=== PATIENT | female | born 1985 | race Caucasian/White ===

== ENCOUNTER → 2017-05-31 | Outpatient (CLI) | payer MEDICAID ==
[~2017-05-31] MED LIST: BACTRIM DS 8001 TA1 PO; BACTRIM DS 8001 TAB PO; CIPRO 500MG TA500 MG PO; DARVOCET-N 1001 EACH PO; IBUPROFEN800 MG PO; IRON TABLETS325 MG PO; LODINE200 MG PO; METRONIDAZOLE500 MG PO; MOTRIN 400MG.400 MG PO; PERCOCET 5/3251 EACH PO; PRENATAL PLUS1 TA1 PO; TAMAFLU OR; [UNRECOGNIZED DRUG - OTHER] OR; [UNRECOGNIZED DRUG - OTHER] OT
[2017-05-31 14:13] LABS: HEMOGLOBIN 14.1 g/dL (12.2-16.2); LYMPH # 2.4 K/mm3 (0.7-4.5)
[2017-05-31 15:00] LABS: BUN 10 mg/dL (7-18)
[2017-05-31 15:01] LABS: GFR (ESTIMATED) 96 ML/MIN (59-)
== END ==
LOC: LAB 13:40
PROVIDERS: Nurse Practitioner Family
DX: R53.83 Other fatigue (principal)

== ENCOUNTER → 2017-06-02 | Outpatient (CLI) | payer MEDICAID ==
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
== END ==
LOC: RAD 10:02
DX: M54.2 Cervicalgia (principal)

== ENCOUNTER 2017-09-07 08:06 | Emergency (ER) | payer MEDICAID ==
[~2017-09-07] VITALS: Ht 165.1 cm; Wt 47.6 kg
--- OUTSIDE RECORDS SUMMARY | 2017-09-07 08:20 | External Medical Summary Rpt | CCD ---
Demographics Preferred Language Persian Marital Status Unknown Evangelical Affiliation Unknown Race Unknown Ethnic Group Unknown Author Author , FRANCIS PORTILLOPORFIRIO Address Unknown Phone [email or web address] Care Team Providers Care Incubator Tender Name Role Phone [facility] Unavailable Unavailable [id number] # [phone], [facility] [id number] # [phone] Purpose Continuity of Care Document - 01-11-2010 through 2016 Medications Na ND Rx Da Fi Fi Am Da Di Ph RX Ph St me C No te ll ll ou ys ag ar # ys at rm s nt no ma ic us Or Da si cy ia de te s n re d 00 08 08 24 6 RI 89 ER Ac 60 -2 -2 .0 TE 64 EN ti 33 5- 5- 00 33 A ve 88 20 20 AI GR 12 11 11 D EG 8 PH OR AR Y MA R CY 03 93 8 # 03 93 00 08 08 24 6 RI 89 ER Ac 60 -2 -2 .0 TE 64 EN ti 33 5- 5- 00 33 A ve 88 20 20 AI GR 12 11 11 D EG 8 PH OR AR Y MA R CY 03 93 8 # 03 93 IB 53 08 08 20 5 RI 89 ER Ac UP 74 -2 -2 .0 TE 64 EN ti RO 60 5- 5- 00 34 A ve FE 46 20 20 AI GR N 50 11 11 D EG 60 5 PH OR 0 AR Y MG MA R CY TA BL 03 ET 93 8 # 03 93 00 10 10 3 [address] Ac 18 -1 -1 .0 TE 45 EP ti 50 9- 9- 00 31 HE ve 61 20 20 AI NS 30 10 10 D 1 PH DO AR N MA R CY 03 93 8 # 03 93 00 10 10 12 2 RI 85 SO Ac 60 -0 -0 .0 TE 22 KA ti 35 1- 1- 00 88 N ve 46 20 20 AI BA 82 10 10 D BA 8 PH TU AR ND MA E CY O 03 93 8 # 03 93 RODRIGUEZ 53 10 10 14 7 RI 85 SO Ac LF 74 -0 -0 .0 TE 22 KA ti AM 60 1- 1- 00 90 N ve ET 27 20 20 AI BA HO 20 10 10 D BA XA 5 PH TU ZO AR ND LE MA E -T CY O MP 03 DS 93 8 TA # BL 03 ET 93 00 04 04 20 3 RI 82 SE Ac 40 -1 -1 .0 TE 96 XT ti 60 3- 3- 00 58 ON ve 35 20 20 AI 70 10 10 D WI 5 PH LL AR IA MA M CY M 03 93 8 # 03 93 00 04 04 20 3 RI 82 SE Ac 40 -1 -1 .0 TE 96 XT ti 60 3- 3- 00 58 ON ve 35 20 20 AI 70 10 10 D WI 5 PH LL AR IA MA M CY M 03 93 8 # 03 93
--- OUTSIDE RECORDS SUMMARY | 2017-09-07 08:20 | External Medical Summary Rpt | CCD ---
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 H92.09 OTALGIA, UNSPECIFIED EAR J10.1 FLU DUE TO OTH IDENT INFLUENZA VIRUS W OTH RESP MANIFEST K80.20 CALCULUS OF GALLBLADDER W/O CHOLECYSTIT IS W/O OBSTRUCTION M54.9 DORSALGIA, UNSPECIFIED N39.0 URINARY TRACT INFECTION, SITE NOT SPECIFIED R10.9 UNSPECIFIED ABDOMINAL PAIN Z34.90 ENCNTR FOR SUPRVSN OF NORMAL , UNSP, UNSP TRIMESTER Medications Na ND Rx Da Fi Fi [...] D WI 5 PH LL AR IA LINDSAY M CY M 03 93 8 # 03 93 Results Labs Lab Lab Date Result Refere Interp Status Commen Order Detail nces retati t Range on Hemoglobin A1c in Blood (05-31-2017 11:15) Hemoglo 5.4 % 0.0% Normal complet bin A1c 017 - ed in 11:15 7.0% Blood CHLAMYDIA AND GONORRHEA TESTING (02-24-2014 09:45) Disability Benefits Specialist: Cortney Bonner MD FC Lab: [facility] Division of Laboratory Services Lab Address: [address] [place] [address], [address] [place] [id number] 02-24-2014 9:45 am Specimen Collection Start Date/Time: Hydraulic Lift Operator: Specimen Rah'flip 03-16-2014 9:57 am Date/Time: Ordering Physician: [facility] 03-17-2014 8:27 am Results Rpt/Status Change Date/Time: This report contains patient information that must be protected in accordance with the Health Insurance Portability and Accountability Act. AMPLIFI NEGATIV complet ED 014 E ed CHLAMYD 09:45 IA TEST Comment: NEGATIVE RESULT= WITHIN NORMAL LIMITS Comment: POSITIVE RESULT= ABNORMAL Comment: EQUIVOCAL RESULT= INDETERMINATE Comment: UNSATISFACTORY RESULT= INVALID COLLECT PT/T. complet OR 014 CANDIS ed 09:45 RN ETHNICI 02-24-2 WHITE, complet TY 014 NON-HIS ed 09:45 PANIC KIT 02-24-2 06-30-14 complet EXPIRAT 014 ed ION 09:45 DATE SYMPTOM NO complet S 014 ed 09:45 REASON REVISIT complet FOR 014 /ANNUAL ed REQUEST 09:45 FAMILY PLANNIN G VISIT SPECIME URINE complet N 014 ed SOURCE 09:45 PREGNAN 02-24-2 YES complet T 014 ed 09:45 CHART NA complet NUMBER 014 ed 09:45 AMPLIFI NEGATIV complet ED N 014 E ed GONORRH 09:45 OEAE TEST Comment: NEGATIVE RESULT= WITHIN NORMAL LIMITS Comment: POSITIVE RESULT= ABNORMAL Comment: EQUIVOCAL RESULT= INDETERMINATE Comment: UNSATISFACTORY RESULT= INVALID Comment: THE APTIMA COMBO 2 ASSAY IS NOT INTENDED FOR THE EVALUATION OF SUSPECTED Comment: SEXUAL ABUSE OR FOR OTHER MEDICO-LEGAL INDICATIONS. FOR THOSE PATIENTS FOR Comment: WHOM A FALSE POSITIVE RESULT MAY HAVE ADVERSE PSYCHO-SOCIAL IMPACT, THE CDC Comment: RECOMMENDS RETESTING. Comment: \E\.br\E\This report contains patient information that must be protected in accordance with the Health Insurance Portability and Accountability Act. CHLAMYDIA AND GONORRHEA TESTING (02-24-2014 09:45) COLLECT PT/T. complet OR 014 CANDIS ed 09:45 RN FABIANAI 02-24-2 WHITE, complet TY 014 NON-HIS ed 09:45 PANIC KIT 02-24-06-30-14 complet EXPIRAT 014 ed ION 09:45 DATE SYMPTOM NO complet S 014 ed 09:45 REASON REVISIT complet FOR 014 /ANNUAL ed REQUEST 09:45 FAMILY PLANNIN G VISIT SPECIME URINE complet N 014 ed SOURCE 09:45 PREGNAN 02-24-2 YES complet T 014 ed 09:45 CHART NA complet NUMBER 014 ed 09:45 Chlamyd NEGATIV complet ia 014 E ed trachom 09:45 atis rRNA [Presen ce] in Unspeci fied specime n by Probe & target amplifi cation method Neisser NEGATIV complet ia 014 E ed gonorrh 09:45 oeae rRNA [Presen ce] in Unspeci fied specime n by Probe & target amplifi cation method CHLAMYDIA AND GONORRHEA TESTING (10-29-2012 11:30) Chlamyd NEGATIV complet ia 013 E ed trachom 11:30 atis rRNA [Presen ce] in Unspeci fied specime n by Probe & target amplifi cation method Neisser NEGATIV complet ia 013 E ed gonorrh 11:30 oeae rRNA [Presen ce] in Unspeci fied specime n by Probe & target amplifi cation method CHLAMYDIA AND GONORRHEA TESTING (10-29-2012 11:30) COLLECT NA complet OR 013 ed 11:30 ETHNICI WHITE, complet TY 013 NON-HIS ed 11:30 PANIC KIT 04-30-13 complet EXPIRAT 013 ed ION 11:30 DATE SYMPTOM NO complet S 013 ed 11:30 REASON REVISIT complet FOR 013 /ANNUAL ed REQUEST 11:30 FAMILY PLANNIN G VISIT SPECIME FEMALE complet N 013 ENDOCER ed SOURCE 11:30 VICAL PREGNAN NO complet T 013 ed 11:30 CHART NA complet NUMBER 013 ed 11:30 Chlamyd Pending complet ia 013 ed trachom 11:30 atis rRNA [Presen ce] in Unspeci fied specime n by Probe & target amplifi cation method Neisser Pending complet ia 013 ed gonorrh 11:30 oeae rRNA [Presen ce] in Unspeci fied specime n by Probe & target amplifi cation method
--- OUTSIDE RECORDS SUMMARY | 2017-09-07 08:20 | External Medical Summary Rpt | CCD ---
Demographics Preferred Language Vietnamese Marital Status Unknown Christianity Affiliation Unknown Race Unknown Ethnic Group Unknown Author Author , FRANCIS BLANCO Address Unknown Phone [email or web address] Immunization Name Date Rout CVX Reac Dose Comm Prov Is Faci e tion ent ider Refu lity Give sed n Td 05-0 9 999 Hist H149 No H149 (lana 3-19 oric lt), 99 al Info adso rmat rbed ion - Sour ce Unsp ecif ied
--- OUTSIDE RECORDS SUMMARY | 2017-09-07 08:20 | External Medical Summary Rpt | CCD ---
Demographics Preferred Language Polish Marital Status Unknown Lutheran Affiliation Unknown Race Unknown Ethnic Group Unknown Author Author , FRANCIS PORTILLOPORFIRIO Address Unknown Phone [email or web address] Care Team Providers Care Supervisor Locomotive Name Role Phone [facility] Unavailable Unavailable [id number] # [phone], [facility] [id number] # [phone] Purpose Continuity of Care Document - 01-11-2010 [...]
--- OUTSIDE RECORDS SUMMARY | 2017-09-07 08:20 | External Medical Summary Rpt | CCD ---
Demographics Preferred Language Lithuanian Marital Status Unknown Synagogue Affiliation Unknown Race Unknown Ethnic Group Unknown Author Author , FRANCIS BLANCO Address Unknown Phone [email or web address] Immunization Name Date Rout CVX Reac Dose Comm Prov Is Faci e tion ent ider Refu lity Give sed n Td 05-0 9 999 Hist H149 No H149 (lana 3-19 oric lt), 99 al Info adso rmat rbed ion - Sour ce Unsp ecif ied
--- OUTSIDE RECORDS SUMMARY | 2017-09-07 08:20 | External Medical Summary Rpt | CCD ---
Author Author , FRANCIS BLANCO Address Unknown Phone [email or web address] Care Team Providers Care Claims Correspondence Clerk Name Role Phone [facility] Unavailable Unavailable [phone] # [phone], [facility] [id number] # [phone] Purpose Continuity of Care Document [...] Blood CHLAMYDIA AND GONORRHEA TESTING (02-24-2014 09:45) Thread Grinder: Cortney Bonner MD FC [facility]: [facility] Laboratory Services Lab Address: [address] [place] [address], [address] [place] [id number] 02-24-2014 9:45 am Specimen Collection Start Date/Time: Lens Silverer: Specimen Rah'flip 03-16-2014 9:57 am Date/Time: Ordering Physician: [facility] 03-17-2014 8:27 am Results Rpt/Status Change Date/Time: [...]
--- OUTSIDE RECORDS SUMMARY | 2017-09-07 08:21 | External Medical Summary Rpt ---
Author Author FRANCIS Hylton, FRANCIS [facility] Organization [employer] Address Unknown Phone Unavailable Results 25-Hydroxyvitamin D [Mass/volume] in Serum or Plasma Observa Value Referen Units Interpr Notes Date tion ce etation Range 25-Hydrox 30.0 - ng/mL No Vitamin D May 31 yvitamin 100.0 informati 2017 D on in deficienc 11:15 AM [Mass/vol source y has ume] in data been Serum or defined Plasma by the [place] [facility] e and an Endocrine Society practice guideline as alevel of serum 25-OH vitamin D less than 20 ng/mL (1,2).The Endocrine Society went on to further define vitamin Dinsuffic iency as a level between 21 and 29 ng/mL (2).1. IOM (Institut e of Medicine) . 2010. Dietary reference intakes for calcium and D. [place]: [employer] al [employer].2. Louie MF, Korey NC, Karyn Smith BARRERA, et al.Evalua tion, treatment , and preventio n of vitamin Ddeficien cy: an Endocrine Society clinical practiceg uideline. JCEM. 2010; 96(7):191 1-30.Perf ormed at: - [facility] [address] [id number] [place], [place] [id number] Decal Maker: Peyman Montez PhD, Phone: [phone] Comprehensive metabolic 2000 panel in Serum or Plasma Observa Value Referen Units Interpr Notes Date tion ce etation Range Albumin/G 1.1 - 1.8 No Normal No May 31 lobulin informati informati 2016 [Mass on in on in 11:15 AM ratio] in source source Serum or data data Plasma Albumin 3.4 - 5.0 gm/dL Normal No May 31 [Mass/vol informati 2017 ume] in on in 11:15 AM Serum or source Plasma data Alkaline 46 - 116 U/L Normal No May 31 phosphata informati 2017 se on in 11:15 AM [Enzymati source c data activity/ volume] in Serum or Plasma Bilirubin 0.2 - 1.0 mg/dL Normal No May 31 .total informati 2016 [Mass/vol on in 11:15 AM ume] in source Serum or data Plasma Urea 7 - 18 mg/dL Normal No May 31 nitrogen informati 2016 [Mass/vol on in 11:15 AM ume] in source Serum or data Plasma Calcium 8.5 - mg/dL Normal No May 31 [Mass/vol 10.1 informati 2016 ume] in on in 11:15 AM Serum or source Plasma data Chloride 98 - 107 mmoL/L Normal No May 31 [Moles/vo informati 2017 lume] in on in 11:15 AM Serum or source Plasma data Carbon 21.0 - mmoL/L Normal No May 31 dioxide, 32.0 informati 2016 total on in 11:15 AM [Moles/vo source lume] in data Serum or Plasma Creatinin 0.55 - mg/dL Normal No May 31 e 1.02 informati 2016 [Mass/vol on in 11:15 AM ume] in source Serum or data Plasma Estimated 59- ML/MIN No REFERENCE May 31 informati RANGE: 2017 glomerula on in >60 11:15 AM r source ML/MIN/1. filtratio data 73 SQUARE n rate METERSIf (GF this patient is -A merican, then multiply theresult by 1.210. Globulin 1.3 - 3.2 gm/dL Normal No May 31 [Mass/vol informati 2017 ume] in on in 11:15 AM Serum source data Glucose 74 - 106 mg/dL Normal No May 31 [Mass/vol informati 2016 ume] in on in 11:15 AM Serum or source Plasma data Potassium 3.5 - 5.1 mmoL/L Normal No May 31 informati 2016 [Moles/vo on in 11:15 AM lume] in source Serum or data Plasma Sodium 136 - 145 mmoL/L Normal No May 31 [Moles/vo informati 2017 lume] in on in 11:15 AM Serum or source Plasma data Aspartate 15 - 37 U/L Low No May 31 informati 2016 aminotran on in 11:15 AM sferase source [Enzymati data c activity/ volume] in Serum or Plasma Alanine 12 - 78 U/L Normal No May 31 aminotran informati 2016 sferase on in 11:15 AM [Enzymati source c data activity/ volume] in Serum or Plasma Protein 6.4 - 8.2 gm/dL Normal No May 31 [Mass/vol informati 2016 ume] in on in 11:15 AM Serum or source Plasma data Thyroxine (T4) free [Mass/volume] in Serum or Plasma Observa Value Referen Units Interpr Notes tion ce etation Range Thyroxine 0.76 - ng/dL Normal No May 31 (T4) 1.46 2016 free on in 11:15 AM [Mass/vol source ume] in data Serum or Plasma Lipid 1996 panel in Serum or Plasma Observa Value Referen Units Interpr Notes ti ce etation Range Cholester < 200 mg/dL No No May 31 ol informati inform2016 [Moles/vo on in on in 11:15 AM lume] in source source Unspecifi data data ed specimen Cholester 40 - 60 MG/DL Normal No May 31 ol in HDL 2016 on in 11:15 AM [Mass/vol source ume] in data Serum or Plasma Cholester 0 - 130 mg/dL Normal No May 31 ol in LDL 2016 on in 11:15 AM [Mass/vol source ume] in data Serum or Plasma by calculati on Triglycer 30 - 200 mg/dL Normal No May 31 andra 2016 [Moles/vo on in 11:15 AM lume] in source Serum or data Plasma Cholester 0 - 40 No Normal No May 31 ol in informati inform2016 VLDL on in on in 11:15 AM [Mass/vol source source ume] in data data Serum or Plasma Thyrotropin [Units/volume] in Serum or Plasma Observa Value Referen Units Interpr Notes ti ce etation Range Thyrotrop 0.358 - uIU/ml Normal No May 31 in 3.740 2016 [Units/vo on in 11:15 AM lume] in source Serum or data Plasma Hemoglobin A1c in Blood Observa Value Referen Units Interpr Notes Date ti ce etation Range Hemoglo 5.4 0.0 - % Normal < 6% May 31 bin A1c 7.0 NON-ATIF 2017 in BETIC 11:15 Blood LEVEL< AM 7% CONTROL LED DIABETI C LEVEL> 8% POORLY CONTROL LED DIABETI C LEVEL CBC W Auto Differential panel in Blood Observa Value Referen Units Interpr Notes Date tion ce etation Range Basophils 0 - 0.2 K/MM3 Normal No May 31 inform2016 [#/volume on in 11:15 AM ] in source Blood by data Automated count Basophils 0.1 - 2.0 % Normal No May 31 / inform2016 leukocyte on in 11:15 AM s in source Blood by data Automated count Eosinophi 0.0 - 0.4 K/mm3 Normal No May 31 ls 2016 [#/volume on in 11:15 AM ] in source Blood by data Automated count Eosinophi 0.1 - % Normal No May 31 ls/100 12.0 inform2016 leukocyte on in 11:15 AM s in source Blood by data Automated count Granulocy 1.8 - 7.8 K/mm3 Normal No May 31 caesar inform2016 [#/volume on in 11:15 AM ] in source Blood by data Automated count Granulocy 37.0 - % Normal No May 31 caesar/100 80.0 inform2016 leukocyte on in 11:15 AM s in source Blood by data Automated count Hematocri 37.0 - % Normal No May 31 t [Volume 47.0 2016 on in 11:15 AM Fraction] source of Blood data Hemoglobi 12.2 - g/dL Normal No May 31 n 16.2 inform2016 [Mass/vol on in 11:15 AM ume] in source Blood data Lymphocyt 0.7 - 4.5 K/mm3 Normal No May 31 es inform2016 [#/volume on in 11:15 AM ] in source Unspecifi data ed specimen by Automated count Lymphocyt 10 - 50.0 % Normal No May 31 es 2016 [#/volume on in 11:15 AM ] in source Unspecifi data ed specimen by Automated count Erythrocy 27 - 31.2 pg High No May 31 te mean 2016 corpuscul on in 11:15 AM ar source hemoglobi data n [Entitic mass] Erythrocy 31.8 - g/dl Normal No May 31 te mean 35.4 2016 corpuscul on in 11:15 AM ar source hemoglobi data n concentra tion [Mass/vol ume] by Automated count Erythrocy 82.2 - fl Normal No May 31 te mean 97.8 2016 corpuscul on in 11:15 AM ar volume source [Entitic data volume] by Automated count Monocytes 0.1 - 1.0 K/mm3 Normal No May 31 informati 2016 [#/volume on in 11:15 AM ] in source Blood by data Automated count Monocytes 1.7 - 9.3 % Normal No May 31 /100 informati 2016 leukocyte on in 11:15 AM s in source Blood by data Automated count Platelet 7.4 - fl Normal No May 31 mean 10.4 informati 2016 volume on in 11:15 AM [Entitic source volume] data in Blood by Automated count Platelets 142 - 424 K/mm3 No No May 31 informati informati 2016 [#/volume on in on in 11:15 AM ] in source source Blood data data Erythrocy 4.2 - 5.4 M/mm3 Normal No May 31 caesar informati 2016 [#/volume on in 11:15 AM ] in source Amniotic data fluid Erythrocy 11.5 - % Normal May 31 te 17.5 informati 2016 distribut on in 11:15 AM ion width source [Entitic data volume] by Automated count Leukocyte 4.8 - K/MM3 Normal No May 31 s 10.8 informati 2016 [#/volume on in 11:15 AM ] in source Blood data CHLAMYDIA AND GONORRHEA TESTING Observa Value Referen Units Interpr Notes Date tion ce etation Range COLLECT PT/T. No No No No February 24 OR CANDIS informa informa informa informa 2014 RN tion in tion in tion in tion in 9:45 AM source source source source data data data data ETHNICI WHITE, No No No No February 24 TY NON-HIS informa informa informa informa 2014 PANIC tion in tion in tion in tion in 9:45 AM source source source source data data data data KIT 06-30-14 No No No No February 24 EXPIRAT informa informa informa informa 2014 ION tion in tion in tion in tion in 9:45 AM DATE source source source source data data data data SYMPTOM NO No No No No February 24 S informa informa informa informa 2014 tion in tion in tion in tion in 9:45 AM source source source source data data data data REASON REVISIT No No No No February 24 FOR /ANNUAL informa informa informa informa 2014 REQUEST FAMILY tion in tion in tion in tion in 9:45 AM source source source source PLANNIN data data data data G VISIT SPECIME URINE No No No No February 24 N informa informa informa informa 2014 SOURCE tion in tion in tion in tion in 9:45 AM source source source source data data data data PREGNAN YES No No No No February 24 T informa informa informa informa 2014 tion in tion in tion in tion in 9:45 AM source source source source data data data data CHART NA No No No No February 24 NUMBER informa informa informa informa 2014 tion in tion in tion in tion in 9:45 AM source source source source data data data data Chlamyd NEGATIV No No No NEGATIV February 24 ia E informa informa informa E 2014 trachom tion in tion in tion in RESULT= 9:45 AM atis source source source WITHIN rRNA data data data NORMAL [Presen ce] in LIMITSP Unspeci OSITIVE fied specime RESULT= n by Probe & ABNORMA target LEQUIVO RIGOBERTO amplifi RESULT= cation method INDETER MINATEU NSATISF ACTORY RESULT= INVALID Neisser NEGATIV No No No NEGATIV February 24 ia E informa informa informa E 2014 gonorrh tion in tion in tion in RESULT= 9:45 AM oeae source source source WITHIN rRNA data data data NORMAL [Presen ce] in LIMITSP Unspeci OSITIVE fied specime RESULT= n by Probe & ABNORMA target LEQUIVO RIGOBERTO amplifi RESULT= cation method INDETER MINATEU NSATISF ACTORY RESULT= INVALID THE APTIMA COMBO 2 ASSAY IS NOT INTENDE D FOR THE EVALUAT ION OF SUSPECT EDSEXUA L ABUSE OR FOR OTHER MEDICO- LEGAL INDICAT IONS. FOR THOSE PATIENT S FORWHOM A FALSE POSITIV E RESULT MAY HAVE ADVERSE PSYCHO- SOCIAL IMPACT, THE CDCRECO MMENDS RETESTI NG.\.br \This report contain s patient informa tion that must be protect ed in accorda nce with the Health Insuran ce Portabi lity and Account ability Act. CHLAMYDIA AND GONORRHEA TESTING Observa Value Referen Units Interpr Notes Date tion ce etation Range COLLECT NA No No No No Oct 29 OR informa informa informa informa 2013 tion in tion in tion in tion in 11:30 source source source source AM data data data data ETHNICI WHITE, No No No No Oct 29 TY NON-HIS informa informa informa informa 2013 PANIC tion in tion in tion in tion in 11:30 source source source source AM data data data data KIT 7-31-13 No No No No Oct 29 EXPIRAT informa informa informa informa 2013 ION tion in tion in tion in tion in 11:30 DATE source source source source AM data data data data SYMPTOM NO No No No No Oct 29 S informa informa informa informa 2013 tion in tion in tion in tion in 11:30 source source source source AM data data data data REASON REVISIT No No No No Oct 29 FOR /ANNUAL informa informa informa informa 2013 REQUEST FAMILY tion in tion in tion in tion in 11:30 source source source source AM PLANNIN data data data data G VISIT SPECIME FEMALE No No No No Oct 29 N ENDOCER informa informa informa informa 2013 SOURCE VICAL tion in tion in tion in tion in 11:30 source source source source AM data data data data PREGNAN NO No No No No Oct 29 T informa informa informa informa 2013 tion in tion in tion in tion in 11:30 source source source source AM data data data data CHART NA No No No No Oct 29 NUMBER informa informa informa informa 2013 tion in tion in tion in tion in 11:30 source source source source AM data data data data Chlamyd NEGATIV No No No NEGATIV Oct 29 ia E informa informa informa E 2013 trachom tion in tion in tion in RESULT= 11:30 atis source source source WITHIN AM rRNA data data data NORMAL [Presen ce] in LIMITSP Unspeci OSITIVE fied specime RESULT= n by Probe & ABNORMA target LEQUIVO RIGOBERTO amplifi RESULT= cation method INDETER MINATEU NSATISF ACTORY RESULT= INVALID Neisser NEGATIV No No No NEGATIV Oct 29 ia E informa informa informa E 2013 gonorrh tion in tion in tion in RESULT= 11:30 oeae source source source WITHIN AM rRNA data data data NORMAL [Presen ce] in LIMITSP Unspeci OSITIVE fied specime RESULT= n by Probe & ABNORMA target LEQUIVO RIGOBERTO amplifi RESULT= cation method INDETER MINATEU NSATISF ACTORY RESULT= INVALID THE APTIMA COMBO 2 ASSAY IS NOT INTENDE D FOR THE EVALUAT ION OF SUSPECT EDSEXUA L ABUSE OR FOR OTHER MEDICO- LEGAL INDICAT IONS. FOR THOSE PATIENT S FORWHOM A FALSE POSITIV E RESULT MAY HAVE ADVERSE PSYCHO- SOCIAL IMPACT, THE CDCRECO MMENDS RETESTI NG.\.br \This report contain s patient informa tion that must be protect ed in accorda nce with the Health Insuran ce Portabi lity and Account ability Act. CHLAMYDIA AND GONORRHEA TESTING Observa Value Referen Units Interpr Notes Date tion ce etation Range COLLECT NA No No No No Oct 29 OR informa informa informa informa 2013 tion in tion in tion in tion in 11:30 source source source source AM data data data data ETHNICI WHITE, No No No No Oct 29 TY NON-HIS informa informa informa informa 2013 PANIC tion in tion in tion in tion in 11:30 source source source source AM data data data data KIT 7-31-13 No No No No Oct 29 EXPIRAT informa informa informa informa 2013 ION tion in tion in tion in tion in 11:30 DATE source source source source AM data data data data SYMPTOM NO No No No No Oct 29 S informa informa informa informa 2013 tion in tion in tion in tion in 11:30 source source source source AM data data data data REASON REVISIT No No No No Oct 29 FOR /ANNUAL informa informa informa informa 2013 REQUEST FAMILY tion in tion in tion in tion in 11:30 source source source source AM PLANNIN data data data data G VISIT SPECIME FEMALE No No No No Oct 29 N ENDOCER informa informa informa informa 2013 SOURCE VICAL tion in tion in tion in tion in 11:30 source source source source AM data data data data PREGNAN NO No No No No Oct 29 T informa informa informa informa 2013 tion in tion in tion in tion in 11:30 source source source source AM data data data data CHART NA No No No No Oct 29 NUMBER informa informa informa informa 2013 tion in tion in tion in tion in 11:30 source source source source AM data data data data Chlamyd Pending No No No No Oct 29 ia informa informa informa informa 2013 trachom tion in tion in tion in tion in 11:30 atis source source source source AM rRNA data data data data [Presen ce] in Unspeci fied specime n by Probe & target amplifi cation method Neisser Pending No No No \.br\Oct 29 ia informa informa informa is 2013 gonorrh tion in tion in tion in report 11:30 oeae source source source contain AM rRNA data data data s [Presen patient ce] in Unspeci informa fied tion specime that n by must be Probe & target protect ed in amplifi accorda cation nce method with the Health Insuran ce Portabi lity and Account ability Act.
--- OUTSIDE RECORDS SUMMARY | 2017-09-07 08:21 | External Medical Summary Rpt ---
Author Author FRANCIS Hylton, FRANCIS [employer] Organization [employer] Address Unknown Phone Unavailable Results 25-Hydroxyvitamin D [Mass/volume] in Serum or Plasma Observa Value Referen Units Interpr Notes Date tion ce etation Range 25-Hydrox 30.0 - ng/mL No Vitamin D May 31 yvitamin 100.0 informati 2017 D on in deficienc 11:15 AM [Mass/vol source y has ume] in data been Serum or defined Plasma by the [place] [facility] and an Endocrine Society practice guideline [...] 2010; 96(7):191 1-30.Perf ormed at: - [facility] [address] [address] [place], [place] [id number] Gas Line Repairer: Peyman Montez PhD, Phone: [phone] Comprehensive metabolic 2000 panel in Serum [...]
--- NOTE | 2017-09-07 08:42 | Emergency Room Report ---
History of Present Illness Time Seen by MD Calles Presenting Problem in Triage Pt arrived:Walked Presenting Problem:PT C/O PAIN BEHIND HER LEFT SHOULDER BLADE. PT STATES IT HURTS TO COUGH, MOVE. 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 N Clinical Suspician of Infection? N Mental Status: 1 - Regular (Normal Baseline) Sepsis Risk:Low Sepsis Risk Have you (or family members/close friends) recently traveled outside the [place]? N If Yes, where/when: Have you had exposure to infectious disease within the past month? N TB? Other? Specify: Patient reports tight cough, as well as pain and spasm with coughing, left posterior chest, x one week. She is a smoker and has used HFA's in the past. She denies sputum. She has a sore throat and some inflamed lymph nodes on the right per her report. Appetite is good; no flu sx; no fever; no SOB; no calf pain. ALLERGIES Coded Allergies: NO KNOWN ALLERGIES (06/26/17) Home Medications Reported Medications No Known Home Medications History Medical History General CAD? No Angina: No [place]: No Hypertension? No Hyperlipidemia? No CHF? No DVT? No PE? No COPD? No Asthma? No Anemia? No GERD? No Gastric ulcers? No GI Bleed? No Hernia? No Thyroid Problems? No Hypothyroidism? No CVA? No Seizures? No Diabetes? No Insulin Dependent: No Insulin Pump: No Home FSBS? No Renal Insuffiency? No End Stage Renal Disease? No UTI? Yes Stones? Yes BPH? No GB Disease: Yes Nephritic Syndrome? No Asplenia? No Hepatitis? No Sickle Cell Disease? No Arthritis? No Migraines? Yes Cataracts? No Glaucoma? No MRSA? No HIV? No TB? No Anxiety? No Depression? No Cancer? No More? 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 Respiratory no symptoms reported, denies wheezing Musculoskeletal see HPI, back pain, muscle pain Physical Exam Vital Signs Vital Signs Date Time Temp Pulse Resp B/P Pulse O2 O2 Flow FiO2 Ox Delivery Rate 09/07 810 98.1 78 20 126/57 99 General Appearance normal appearance, WD/WN, no apparent distress Eye Exam - bilateral eye normal exam, bilateral eye PERRL, bilateral eye EOMI Ear, Nose, Throat pharyngeal erythema (mild, R, no exudates) Neck normal inspection, non-tender, supple, full range of motion Respiratory Status Yes: trachea midline, chest symmetrical, tender on palpation, non productive cough (L trap muscle spasm;tightcough). No: respiratory distress, non tender chest, use of accessory muscles, pain on inspiration, pain on expiration, productive cough. Lung Sounds bilateral: normal breath sounds, lungs clear. Cardiovascular normal exam, regular rate/rhythm, no peripheral edema, no gallop, no JVD, no murmur, no rub, normal peripheral pulses Gastrointestinal normal bowel sounds, normal exam, non tender, soft, no organomegaly, no pulsatile mass, no guarding, no rebound Back normal inspection, no CVA tenderness, no vertebral tenderness, bowel/ bladder continent, gait normal, muscle spasm (see above) Extremities non-tender, normal range of motion, normal inspection, no calf tenderness Strength 5 Upper Ext (L), 5 Upper Ext (R), 5 Lower Ext (L), 5 Lower Ext (R) Neurologic alert, normal exam, no motor/sensory deficits, oriented x 3 Skin intact, normal color, warm/dry, no rash cons.w/shingles Lymphatic some mobile, small, shotty lymph nodes to R anterior cervical chain Medical Decision Making LABS/Meds/Orders Pt receiving controlled substance in ED? No Results/Orders Orders Procedure Date/time Status CHEST(2 VIEWS-NOT PORTABLE) 09/07 835 Active CULTURE, THROAT 09/07 835 Active STREP SCREEN THROAT 09/07 835 Complete XRAY/CT/US XRAY/CT/US XRAY chest XR interpretation by reviewed by me Xray Results normal/NAD, prom vascular markings seen 01/06 Departure Departure Time of Disposition 910 Disposition DC Home or Self Care(routine) Clinical Impression Primary Impression: Musculoskeletal back pain Secondary Impressions: Bronchitis Pharyngitis Qualifiers: Pharyngitis/tonsillitis etiology: unspecified etiology Qualified Code: J02.9 - Acute pharyngitis, unspecified Condition STABLE Referrals Ady HUYNH,Naveen Tapia (Family) Patient Instructions Cough, DI for Muscle Spasm Additional Instructions Naproxen, albuterol, quit smoking, see Dr. Garsia for follow up in two to four days. Recommend Robitussin DM over the counter cough syrup as well. Discharge Counseling Counseled pt/family regarding diagnosis, test results, medications/RX, home care, follow up needs Prescriptions Current Visit Scripts NAPROXEN (NAPROXEN 500MG TAB) 500 MG PO BIDP PRN pain #20 TAB ALBUTEROL (Proventil Hfa Inhaler) 1-2 PUFF IH Q4-6H PRN #1 CAN ED Critical Care Critical Care No at 0916
[2017-09-07] MEDS ORDERED: NAPROXEN SODIU500 MG PO (09:14)
[2017-09-07] MEDS ORDERED: PROVENTIL0.09 MG/A1 IH (09:15)
[2017-09-07 09:41] VITALS: BP 126/57
--- NOTE | 2017-09-07 12:05 | RADIOLOGY REPORT PS360 ---
CHEST(2 VIEWS-NOT PORTABLE) HISTORY: cough, left scapular pain x one week, smoker ORDERING PHYSICIAN: Jada Grove MD PATIENT AGE: 32 years COMPARISON: 01/09/2008 FINDINGS: The cardiomediastinal silhouette and pulmonary vascularity are within normal limits. The lungs are clear without infiltrates, suspicious nodules, or pleural effusions. No acute bony abnormalities. IMPRESSION: Negative chest, no acute finding
== END 2017-09-07 09:42 | disposition home or self-care (01) ==
LOC: ER 08:06
DX: M54.89 Other dorsalgia (principal); J02.9 Acute pharyngitis, unspecified; J40 Bronchitis, not specified as acute or chronic; F17.210 Nicotine dependence, cigarettes, uncomplicated